=== PATIENT | female | born 1945 | race Caucasian/White ===

== ENCOUNTER → 2016-12-05 | Outpatient (CLI) | payer MEDICARE, BC ==
--- NOTE | 2016-12-06 14:36 | DEXA ---
AP SPINE L1 - L4 1.114 -0.6 0.8 LT FEMUR TOTAL 1.022 0.1 1.5 RT FEMUR TOTAL 1.004 0.0 1.3 TOTAL BODY TOTAL OTHER DUAL FEMUR FRAX* ASSESSMENT Risk factors: History of adult fracture. 10 year probability of fracture Major osteoporotic fracture 15.0 % Hip fracture 1.9 % COMMENTS: Normal bone densitometry of the spine. There is low bone density of the hips. The decreased density of the spine does not represent a significant change. The decreased density of the left hip does not represent a significant change. The increased density of the right hip does represent a significant change. The density of the spine has decreased 7.9% since the initial exam on 2001. The spine density has decreased 0.7% since the most recent exam on 11/22/2014. The density of the left hip has decreased 1.9% since the initial exam on 2001. The density of the left hip has decreased 0.7% since the most recent exam on . The density of the right hip has decreased 2.5% since the initial exam on 2001. The density of the right hip has increased 4.4% since the most recent exam on . FOLLOW-UP: Recommendation for the next bone density exam: 2 years. ALIS
== END ==
LOC: M WHC 09:03
PROVIDERS: ATTEND Internal Medicine Endocrinology, Diabetes & Metabolism
DX: M94.9 Disorder of cartilage, unspecified (principal); M89.9 Disorder of bone, unspecified

== ENCOUNTER → 2021-01-04 | Outpatient (CLI) | payer MEDICARE, BC ==
--- NOTE | 2021-01-04 11:44 | DEXAMM ---
INDICATION: M81.0 AGE RELATED OSTEOPOROSIS. COMPARISON: Comparison studies December 05, 2016, November 22, 2014, October 23, 2012, and July 28, 2001.. TECHNIQUE: Bone density was measured using dual-energy x-ray absorptionmetry (DEXA). FINDINGS: AP SPINE L1-L4 BMD 1.153 g/cm2 Young Adult T-Score -0.3 Age Matched Z-Score 1.4. LT FEMUR, TOTAL BMD 0.978 g/cm2 Young Adult T-Score -0.2 Age Matched Z-Score 1.5. LT NECK BMD 0.898 g/cm2 Young Adult T-Score -1.0 Age Matched Z-Score 0.9. RT FEMUR, TOTAL BMD 0.994 g/cm2 Young Adult T-Score -0.1 Age Matched Z-Score 1.6. RT NECK BMD 0.890 g/cm2 Young Adult T-Score -1.1 Age Matched Z-Score 0.8. IMPRESSION: There is normal bone density of the spine. There is normal bone density of the left hip. There is low bone density of the right hip. The density of the spine has decreased 4.6% since the initial exam on July 28, 2001. The density of the spine increased 3.5% since most recent exam on December 05, 2016. The density of the left hip has decreased 6.1% since initial exam on July 28, 2001. The density of the left hip has decreased 4.3% since most recent exam on December 05, 2016. The density of the right hip has decreased 3.5% since the initial exam on July 28, 2001. The density of the right hip has decreased 1.0% since the most recent exam on December 05, 2016. FOLLOW-UP: Recommendation for the next bone density exam: 2 years. <Electronically signed by Des Santos > 01/04/21 [id number]
== END ==
LOC: M WHC 09:45
PROVIDERS: ATTEND Internal Medicine Endocrinology, Diabetes & Metabolism
DX: M81.0 Age-related osteoporosis without current pathological fracture (principal)